=== PATIENT | female | born 1985 | race Caucasian/White ===

== ENCOUNTER → 2019-12-14 | Outpatient (CLI) | payer OTHER ==
[~2019-12-14] MED LIST: IBUP-1114 PO; IBUP80TA PO; LEVO125T4 PO; LEVO25TABR PO; MAPA500T17 PO; MAPA500T2 PO; PRENTAB55 PO; PRENTAB66 PO
--- NOTE | 2019-12-14 12:08 | REP ---
DIGITAL DIAGNOSTIC UNILATERAL RIGHT BREAST MAMMOGRAPHY WITH CAD, 3D TOMOGRAPHY, AND FOCUSED RIGHT BREAST SONOGRAPHY: HISTORY: Palpable lump in the right breast retroareolar region 5 months in duration. 3 months post cessation of . Lump persists. No comparison breast imaging. MAMMOGRAPHIC FINDINGS: An opaque marker is affixed to the skin at the site of the palpable lump in the right breast. Routine views are augmented by 3D tomography, and magnified focal spot compression mammography. Breast parenchyma is heterogeneously dense in a pattern which may inhibit the sensitivity of mammography. Volpara pattern C. There is no dominant density visible mammographically in the area of the palpable lump or elsewhere in the right breast. No microcalcifications or architectural distortion is seen. No worrisome skin changes appreciated. SONOGRAPHIC FINDINGS: The right breast is examined in the retroareolar 12-o'clock position where there is a palpable lump. There is an irregular hypoechoic lesion seen sonographically here measuring 1.9 x 1.0 x 1.4 cm. There is some eccentrically positioned internal Doppler flow within the lesion. Its long axis is perpendicular to the skin, and the lesion must be considered suspicious sonographically. IMPRESSION: BIRADS 4: BI-RADS/ACR category 4 mammogram. Suspicious Abnormality - biopsy should be considered. BI-RADS category 4 suspicious right breast imaging. Ultrasound-guided needle biopsy of the hypoechoic lesion in the right breast is recommended with marker clip placement and post clip placement mammography. This mammogram was interpreted with the aid of an FDA-approved computer-aided detection system. The patient states she had a clinical breast exam in November 2019. The patient letter being requested is M4, dense.
== END ==
LOC: M WHC 07:54
PROVIDERS: ATTEND Obstetrics & Gynecology
DX: N63.10 Unspecified lump in the right breast, unspecified quadrant (principal)

== ENCOUNTER → 2019-12-21 | Outpatient (CLI) | payer OTHER ==
[~2019-12-21] MED LIST changes: +ORTH1TAB8 PO
== END ==
LOC: M PLALAB 09:18
PROVIDERS: ATTEND Surgery
DX: Z13.79 Encounter for other screening for genetic and chromosomal anomalies (principal)

== ENCOUNTER → 2019-12-23 | Outpatient (CLI) | payer OTHER ==
[2019-12-23 14:09] VITALS: BP 130/72
--- NOTE | 2019-12-23 15:48 | REP ---
DIGITAL DIAGNOSTIC UNILATERAL RIGHT BREAST MAMMOGRAPHY: TWO VIEWS. WITH CAD: HISTORY: Marker clip placement views. The patient status post ultrasound-guided needle biopsy procedure. COMPARISON MAMMOGRAPHY: 12/14/2019 FINDINGS: Cranio-caudal and true mediolateral views demonstrate a needle biopsy marker clip in the anterior third of the right breast superiorly and medially. There is some post biopsy soft tissue fullness in the region. IMPRESSION: Marker clip placement views.
--- NOTE | 2019-12-23 16:15 | REP ---
FOCUSED RIGHT BREAST SONOGRAPHY: HISTORY: Right breast mass. Ultrasound guided needle biopsy. COMPARISON SONOGRAPHY: December 14, 2019 FINDINGS: Sonographic guidance is provided Dr. Lazar who performed ultrasound-guided needle biopsy procedure. a HydroMARK clip was placed.
--- NOTE | 2019-12-24 04:14 | REP ---
Clinical: Right axillary adenopathy. Technique: Real time noriega scale and color evaluation using linear high frequency transducer. Findings: Ultrasound examination of the right axillary region demonstrates multiple mildly prominent lymph nodes measuring up to 16 x 17 x 28 mm and 25 x 12 x 19 mm. No abnormal fluid collection or discrete mass lesion. Impression: Moderately prominent right axillary adenopathy.
--- NOTE | 2019-12-27 16:38 | ROOPDOC ---
[facility] Report Of Operation Report of Operation DATE OF PROCEDURE: 12/23/19 PREPROCEDURE DIAGNOSES: Suspicious right breast mass. POSTPROCEDURE DIAGNOSES: Suspicious right breast mass. PROCEDURE: Ultrasound-guided biopsy of right breast mass with clip placement. SURGEON: Ashutosh Crooks ADJUNCT PHLEBOTOMY INSTRUCTOR: ANESTHESIA: Local anesthetic was used. ESTIMATED BLOOD LOSS: Approximately 1 mL. COMPLICATIONS: None. REMARKS: Clip is seen on post biopsy mammogram in expected position. DESCRIPTION OF PROCEDURE: Lidocaine 1% LOT [id number] Expiration 09/2022 Sodium Bicarbonate 8.4% LOT [id number] Expiration 01/2021 Hydromark clip LOT [id number] Expiration 07/2022 SHAPE 3 Bx device: BARD [id number] x10 cm LOT [id number] Expiration 09/2022 Informed consent was obtained. The most common risk and possible complications including bleeding, hematoma, bruising, infection, injury to surrounding structures were explained to the patient and she expressed understanding. Patient was placed on the bed in the supine position. Appropriate time out was done stating patients name, date of , and the procedure to be performed. The right breast was prepped and draped in the usual fashion. The ultrasound was used to confirm the location of the lesion in the right breast at 12:00 at the areolar border. Plain Lidocaine 1% and 8.4% sodium bicarbonate 10:1 mix was used to anesthetize the skin, the biopsy site and tissues along the anticipated biopsy tract. Small skin incision was made with blade number 11. BARD Marquee 14G cannula with introducer ([id number]) was inserted through the incision and advanced under the ultrasound guidance to position immediately adjacent to the lesion. Next, the introducer was removed and BARD Marquee 14G biopsy device was places in the cannula. Pre-biopsy imaging, and post-biopsy imaging were captured. Five good core biopsies were taken at various levels of the lesion. Specimen was placed in formaldehyde, labeled with appropriate biopsy site and patients name, and sent to pathology for evaluation. Next, the biopsy device was withdrawn and a clip introducer was inserted into the biopsy site via the cannula. The Hydromark clip was deployed under direct vision. Post-clip placement image was captured. Manual pressure over the biopsy cavity and tract was held after the clip introducer was withdrawn. No bleeding was noted upon removal of the pressure. Post-biopsy mammogram of the right breast was obtained and showed clip in expected position. Postprocedural dressing was placed. Patient tolerated procedure well. Discharge instructions were discussed with the patient and she expressed understanding. ASHUTOSH CROOKS DO December 27, 2019 16:38
== END ==
LOC: M WHC 12:31
PROVIDERS: ATTEND Surgery
DX: C50.911 Malignant neoplasm of unspecified site of right female breast (principal); Z17.0 Estrogen receptor positive status [ER+]

== ENCOUNTER → 2019-12-29 | Outpatient (REF) | payer OTHER ==
[~2019-12-29] MED LIST changes: +B-650TAB2 PO; +D31000TA2 PO; +PANT40TA29 PO; +TAMO20TA8 PO
[2019-12-29 15:29] LABS: BLOOD UREA NITROGEN 11 MG/DL (7-18); CALCIUM LEVEL 9.4 MG/DL (8.5-10.1); CARBON DIOXIDE LEVEL 29 MEQ/L (21-32); CHLORIDE LEVEL 105 MEQ/L (98-107); CREATININE FOR GFR 0.86 MG/DL (0.55-1.30); GLOMERULAR FILTRATION RATE > 60.0 (>60); GLUCOSE, FASTING 89 MG/DL (70-100); POTASSIUM SERUM 4.3 MEQ/L (3.5-5.1); SODIUM LEVEL 138 MEQ/L (136-145)
== END ==
LOC: M PLALAB 12:30
PROVIDERS: ATTEND Surgery
DX: C50.911 Malignant neoplasm of unspecified site of right female breast (principal)

== ENCOUNTER → 2019-12-31 | Outpatient (CLI) | payer OTHER ==
[~2019-12-31] MED LIST changes: -B-650TAB2 PO; -D31000TA2 PO; -PANT40TA29 PO; +PROHANCE 279.3MG/ML 15ML VIAL As Ordered ONE; +PROHANCE 279.3MG/ML 5ML VIAL As Ordered ONE; -TAMO20TA8 PO
--- NOTE | 2019-12-31 15:06 | REP ---
BILATERAL BREAST MRI STUDY WITHOUT AND WITH IV GADOLINIUM: HISTORY: Breast carcinoma. Malignant neoplasm right breast. Comparison mammography and sonography December 14, 2019. Right axillary adenopathy seen on ultrasound right axilla December 23, 2019. The patient is post ultrasound-guided needle biopsy in December 23, 2019. TECHNIQUE: Three Saloni MRI imaging was performed with a dedicated breast coil. Axial, coronal, and sagittal T1- and T2-weighted scans were obtained with and without fat saturation in the usual fashion. The study includes dynamically acquired post gadolinium enhanced imaging subtraction imaging. Maximal intensity projection and multiplanar re-formation imaging is included as well. The study was interpreted with the aid of [id number], an FDA approved computer-aided detection (CAD) software program, on a dedicated breast MRI work station. The gadolinium enhancement dose is 16 mL of intravenous ProHance. FINDINGS: There is a large spiculated infiltrating irregular enhancing mass in the superior aspect of the right breast. This lesion is quite extensive with enhancing tissue extending in a ductal pattern to just beneath the right nipple anteriorly. It measures 5.2 cm in anteroposterior extent x 5.3 cm medial to lateral x 3.3 cm in greatest cranial to caudal dimension. On dynamically acquired sequential post contrast images, the lesion demonstrates heterogeneous contrast enhancement with large areas of progressive enhancement and scattered small areas of washout and plateau kinetics. The needle biopsy marker clip is seen in the midst of this along the medial aspect of the lesion. There is evidence of fairly bulky right axillary lymphadenopathy consistent with metastatic disease of the lymph nodes in the right axilla. These measure up to 2 x 2.5 cm in size. There are three or four enlarged lymph nodes visible. There is no visible internal mammary adenopathy. There is no visible skin thickening. There are moderate fibroglandular elements bilaterally corresponding with the mammographic density pattern. There is a mild pattern of background parenchymal enhancement in the left breast. No suspicious morphologic abnormality or suspicious area of enhancement washout is seen in the left breast to suggest malignancy on the left. There is no evidence of left axillary adenopathy. IMPRESSION: BIRADS category 6 known right breast malignancy with a large infiltrative lesion occupying much of the superior portion of the right breast, 5.3 cm in greatest diameter. There is evidence of right axillary lymphadenopathy with multiple suspicious nodes. No abnormality noted on the left. Electronically Signed by Christiano Howell MD 12/31/2019 04:19 P
== END ==
LOC: M RAD 12-30 11:34
PROVIDERS: ATTEND Surgery
DX: C50.911 Malignant neoplasm of unspecified site of right female breast (principal)
CPT/HCPCS: A9576; C8908

== ENCOUNTER → 2020-01-12 | Outpatient (CLI) | payer OTHER ==
[~2020-01-12] MED LIST changes: -PROHANCE 279.3MG/ML 15ML VIAL As Ordered ONE; -PROHANCE 279.3MG/ML 5ML VIAL As Ordered ONE
--- NOTE | 2020-01-12 17:49 | REP ---
PET/CT: HISTORY: Staging right breast carcinoma. COMPARISONS: Comparison breast MRI study, December 31, 2019. TECHNIQUE: 49 minutes following the intravenous injection of a 8.18 mCi dose of F-18 FDG, three-dimensional PET scintigraphy is acquired from the skull base to the proximal thighs. Triplanar noncontrast CT scanning is acquired through the same anatomic range for attenuation correction, and image registration with scan parameters optimized to minimize radiation exposure to the patient. PET scintigraphy and CT datasets were fused and displayed on a workstation with multiplanar and projection display capability. PET/CT FINDINGS: There is a 4.8 x 3.6 cm area of hypermetabolic uptake in the right superior breast corresponding to the known right breast malignancy. Maximum standard uptake value here is 11.19. No other abnormal breast uptake is seen. No abnormal internal mammary hypermetabolic uptake is seen. However, there is fairly bulky right axillary hypermetabolic adenopathy. Maximum standard uptake value in the axillary lymph nodes is 17.01. There are five or six hypermetabolic enlarged lymph nodes in the right axilla. No supraclavicular adenopathy is seen. No abnormal uptake is seen in the head and neck soft tissues. In the abdomen and pelvis, there is normal hepatic, splenic, gastrointestinal, and genitourinary FDG accumulation. No abnormal abdominal or pelvic uptake is seen. There is no abnormal skeletal hypermetabolic uptake. IMPRESSION: There is a large hypermetabolic mass in the right superior breast with hypermetabolic right axillary lymphadenopathy. No other abnormal uptake is seen. Electronically Signed by Christiano Howell MD 01/12/2020 06:03 P
== END ==
LOC: M PLARAD 12:24
PROVIDERS: ATTEND Surgery
DX: C50.911 Malignant neoplasm of unspecified site of right female breast (principal); R59.0 Localized enlarged lymph nodes
CPT/HCPCS: 78815; A9552

== ENCOUNTER → 2020-01-13 | Outpatient (CLI) | payer OTHER ==
--- NOTE | 2020-01-14 16:09 | ECHO ---
DATE OF PROCEDURE: 01/13/2020 REFERRING PHYSICIAN: Dr. Keila Newman INDICATION: Chemotherapy drugs that may affect the heart. HEIGHT: 71 inches. WEIGHT: 177 pounds. 2D MEASUREMENTS: Aortic root: 2.7 cm Left atrium: 3.3 cm Ventricular septum: 0.68 cm Posterior wall: 0.97 cm Left ventricle diastole: 4.4 cm Aortic annulus: 2.2 cm Inferior vena cava: 1.8 cm DOPPLER MEASUREMENTS: No aortic regurgitation. Aortic valve velocity: 128 cm/s LVOT velocity: 105 cm/s Trace mitral regurgitation within normal limits. Mitral E velocity: 77.1 cm/s Mitral A velocity: 48.4 cm/s Mitral deceleration time: 217 ms No tricuspid regurgitation. No pulmonic regurgitation. Pulmonary acceleration time: 161 ms MITRAL ANNULAR TISSUE DOPPLER: E prime septal: 14.3 cm/s E prime lateral: 10.5 cm/s DESCRIPTION: Rhythm was sinus. Image quality was good. This was a 2D, M-mode, color flow Doppler and pulse wave Doppler examination and included mitral annular tissue Doppler. CONCLUSIONS: 1. Normal echocardiogram Doppler. 2. Normal left ventricle internal dimensions and wall thickness. Normal regional left ventricular (LV) wall motion and wall thickening. Normal LV systolic function. Left ventricular ejection fraction (LVEF) 65% by visual estimate. Normal longitudinal peak strain imaging pattern. 3. No pericardial effusion.
== END ==
LOC: M CARPUL 14:19
PROVIDERS: ATTEND Internal Medicine Medical Oncology
DX: C50.911 Malignant neoplasm of unspecified site of right female breast (principal)

== ENCOUNTER → 2020-01-22 | Outpatient (CLI) | payer OTHER ==
[~2020-01-22] MED LIST changes: +PROHANCE 279.3MG/ML 15ML VIAL As Ordered ONE; +PROHANCE 279.3MG/ML 5ML VIAL As Ordered ONE
--- NOTE | 2020-01-22 14:30 | REPVR ---
PROCEDURE INFORMATION: Exam: MR Head Without and With Contrast Exam date and time: 01/22/2020 2:01 PM Age: 34 years old Clinical indication: Condition or disease; History of cancer (specify primary cancer site): ; Primary cancer: Breast; Additional info: Stage breast CA TECHNIQUE: Imaging protocol: MR of the head without and with intravenous contrast. Contrast material: PROHANCE; Contrast volume: 16 ml; Contrast route: IV; Other technique: COMPARISON the: PT - PET/CT Skull/mid thigh 01/12/2020 1:52:14 PM COMPARISON: No relevant prior studies available. FINDINGS: Brain: Mild cerebellar tonsillar ectopia, likely incidental. No acute infarct identified on the diffusion-weighted imaging. No evidence of brain parenchymal edema or intracranial mass effect. A few scattered areas of apparent sulcal hyperintensity on the FLAIR sequence, likely artifact. A few punctate foci of increased signal intensity in the deep and subcortical white matter most likely representing trace chronic small vessel ischemic change. No enhancing lesions identified on the postcontrast sequences. Ventricles: No ventriculomegaly. Bones/joints: Unremarkable. Sinuses: Lobulated opacity in the left frontal sinus which appears T1 isointense, may reflect inspissated secretions. The possibility of a retention cyst or mucocele is considered. Mastoid air cells: Normal as visualized. No mastoid effusion. Orbits: Unremarkable. Soft tissues: Unremarkable. IMPRESSION: No evidence of metastatic disease. Electronically signed by: Jamee Ha On 01/22/2020 14:30:33 PM
== END ==
LOC: M RAD 12:58
PROVIDERS: ATTEND Internal Medicine Medical Oncology
DX: C50.919 Malignant neoplasm of unspecified site of unspecified female breast (principal)
CPT/HCPCS: 70553; A9576

== ENCOUNTER → 2020-06-23 | Outpatient (CLI) | payer OTHER ==
[~2020-06-23] MED LIST changes: +B-650TAB2 PO; +D31000TA2 PO; -PROHANCE 279.3MG/ML 15ML VIAL As Ordered ONE; -PROHANCE 279.3MG/ML 5ML VIAL As Ordered ONE
--- NOTE | 2020-06-23 11:37 | RADONC.CN ---
Radiation Oncology Hx/Consult Radiation Oncology Consult Date of Service: Jun 23, 2020 Pt Identifier Phyllis Rojas is a 35 year old female with a history of right breast cancer [id number] ER/MN+ HER2- Grade 3 s/p neoadjuvant AC+T chemotherapy followed by BL nipple sparing mastectomies and right ALND on 05/31/20. She had immediate reconstruction. There was concern for atypical cells present at the margin of the nipple. The remainder of margins were negative. There was cancer detected in 2/14 nodes. 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 The latter raises concern for more severe RT side effects. She is seen today for consideration of PMRT. Diagnosis/Treatment History Oncologic History Presented with a right breast lump in early 201912/23/19 mammogram showing central right breast lesion biopsy showing ER/MN+ HER2- Grade 3 disease. 12/31/19 EOD MRI with 5.2 cm central right breast mass and axillary level I adenopathy [id number] 01/12/20 PET-CT negative for distant metastases 04/27/20 Completed AC+T chemotherapy ([facility]) 05/31/20 BL nipple sparing mastectomies ([facility]) final path [id number] focal IDC cells at right nipple margin, unclear if that margin is truly positive as it was submitted separately Per Dr. 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 Some post-op impaired ROM BL arms. No RUE swelling. Some mild tenderness. No skin concerns. Has some tightness in the chest from her tissue expanders. Fully active at home, taking care of her small children. Appetite and energy levels at pre-chemo baseline. Past Medical History: Hypothyroid Breast history OCP 20 years first @ 22 Menses @ 11 Pre-menopausal with plans to start trelstar and eventually undergo oophorectomy Past Surgical History: As above Family History: Maternal grandfather prostate cancer Social History: Non-smoker Non-drinker 3 school age children Allergies / Meds Allergies: Coded Allergies: No Known Allergies (Verified , 08/10/08) Home Meds Reported Medications Pyridoxine HCl (Vitamin B6) (Vitamin B-6) 50 Mg Tablet, 50 MG PO DAILY, TAB 06/23/20 Cholecalciferol (Vitamin D3) (Vitamin D3) 1,000 Unit Tablet, 1000 UNITS PO DAILY, TAB 06/23/20 Levothyroxine Sodium (LEVOTHYROXINE SODIUM) 125 Mcg Tab, 125 MCG PO DAILY, TAB 01/16/18 Discontinued Reported Medications Norgestimate-Ethinyl Estradiol (Ortho Tri-Cyclen 28 Tablet) 1 Each Tablet, 1 TAB PO DAILY for 28 Days, #28 TAB 12/23/19 Review of Systems Constitutional: Denies: Chills, Fever, Night Sweats Eyes: Denies: Pain, Vision change HEENT: Denies: Head Aches, Dysphagia, Sore Throat Skin: Denies: Rash, Lesions, Bruising Pulmonary: Denies: Dyspnea, Cough Cardiovascular: Denies: Chest Pain, Palpitations, Edema Breast: Reports: Breast Pain or Tenderness; Denies: New Breast Lumps / Masses, Nipple Retraction, Nipple Discharge, Breast Skin Changes Gastrointestinal: Denies: Nausea, Vomiting, Abdominal Pain, Diarrhea Genitourinary: Denies: Dysuria, Frequency, Incontinence Hematologic: Denies: Bruising, Petecchia, Enlarged Lymph Nodes Musculoskeletal: Denies: Neck pain, Back pain Neurological: Denies: Weakness, Numbness, Incoordination Psych: Reports: Mood Normal; Denies: Memory Issues, Thoughts of Self Harm Vital Signs Ht 71" Wt 183 BMI 25.6 T 96.9 P 74 RR 16 BP 117/77 O2 98% Pain 1 Fatigue 0 General Exam: Positive: Alert, Cooperative, No Acute Distress Eye Exam: Positive: PERRLA, EOMI ENT EXAM: Positive: Mucous membr. moist/pink, Pharynx Normal Neck Exam: Negative: Thyromegaly, Lymphadenopathy Chest Exam: Positive: Normal air movement; Negative: Rales, Rhonchi, Wheezing Heart Exam: Positive: Rate Normal, Regular Rhythm Breast Exam: Positive: Symmetric Bilaterally (BL tissue expanders in place, incisions well-healed. No nipple or periareolar lesions. Right axillary incision well healed. No RUE edema) Abdomen Exam: Positive: Soft; Negative: Tenderness, Mass Extremity Exam: Negative: Edema, Tenderness Skin Exam: Positive: Nl turgor and temperature; Negative: Rash Neuro Exam: Positive: Normal Gait, Normal Speech, Cranial Nerves 3-12 NL Psych Exam: Positive: Mental status NL, Mood NL, Memory Intact Diagnostic and Laboratory Diagnostic Review Radiologic images, relevant labs and pathology reports were personally reviewed and discussed with Ms. Rojas. Assessment and Plan Impression Ms. Rojas is a 35 year old female with a history of right breast cancer [id number] ER/MN+ HER2- Grade 3 s/p neoadjuvant AC+T chemotherapy followed by BL nipple sparing mastectomies and right ALND on 05/31/20. She had immediate reconstruction. There was concern for atypical cells present at the margin of the nipple. The remainder of margins were negative. There was cancer detected in 2/14 nodes. 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 The latter raises concern for more severe RT side effects. She is seen today for consideration of PMRT. Stage [id number] stage IIIA-->[id number] stage IA ER/MN+ HER2- Grade 3 right breast cancer Performance Status ECOG 0 Plan We had an extensive discussion with Ms. Rojas regarding the diagnosis at hand and available therapeutic options. She had a large disease burden initially with very favorable downstaging with neoadjuvant chemotherapy. She had nipple sparing mastectomy with concern for the margin at the nipple. Dr. Amaral is considering whether to resect the right nipple or not. This contingency would not affect my recommendation that she undergo PMRT including the right chest wall and comprehensive RNI. 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 Other reports have suggested increased clinical benefit of RT in this population (Rothman et al STEFANY 2001). More recent reports however, have shown that the risk of significant side effects in these patients is comparable with that of the general breast cancer population when using contemporary RT techn ique (Ottoniel et al JCO 2019). My plan for her is to use VMAT to deliver treatment, firstly to deliver comprehensive cristian RT including the IMN on the right, and also to ensure that we adhere to established dose constraints for lung, contralateral breast, and target homogeneity criteria given her young age, GLORIA carrier status, and plans for oncoplastic reconstruction. There is no role for bolus of the chest wall in her case, in spite of the unclear margin status at the nipple, I think that incidental skin dose in this region, which is typically in excess of 70% Rx with VMAT would be sufficient to clear any residual microscopic deposits. Dr. Amaral should ultimately decide how to manage the right nipple irrespective of what we do with RT based on her clinical acumen and judgement. All of these contingencies were discussed with the patient. We discussed the logistics of receiving radiation therapy in detail including the need for a 1-time planning session. I would like this to occur the week of 07/04/20 as she still has some tenderness of the chest and it is mildly uncomfortable for her to raise her hand above her head. We reviewed the early and late effects of RT including skin reaction, fatigue, fibrosis, implant failure, and second malignancy. After discussing the risks, benefits and alternatives to radiation therapy, Ms. Rojas was amenable to pursuing radiotherapy. All questions were answered to the patient's satisfaction. We instructed the patient that if there were any questions,concerns or changes in clinical status in the interim to contact us. Recommendations PMRT to the right CW and comprehensive RNI including IMN, axilla and supraclavicular fossa 50.4 Gy in 28 fractions to the CW, no bolus or boost Simulation week of 07/04/20 YOSSI LEE MD Jun 23, 2020 11:37
== END ==
LOC: M ONCR 08:53
PROVIDERS: ATTEND General Practice
DX: C50.919 Malignant neoplasm of unspecified site of unspecified female breast (principal)

== ENCOUNTER 2020-07-04 13:50 | Outpatient (RCR) | payer OTHER | END 2020-07-18 | LOC: M ONCR 13:50 | PROVIDERS: ATTEND General Practice | DX: C50.111 Malignant neoplasm of central portion of right female breast (principal) ==

== ENCOUNTER → 2020-08-18 | Outpatient (RCR) | payer OTHER ==
[~2020-08-18] MED LIST changes: +PANT40TA29 PO; +TAMO20TA8 PO
== END ==
LOC: M ONCR 07-19 13:01
PROVIDERS: ATTEND General Practice
DX: C50.111 Malignant neoplasm of central portion of right female breast (principal)

== ENCOUNTER 2020-08-31 08:36 | Outpatient (RCR) | payer OTHER ==
[2020-09-02] MEDS ORDERED: PANT40TA29 PO (10:36)
== END 2020-09-18 ==
LOC: M ONCR 08:36
PROVIDERS: ATTEND General Practice
DX: C50.111 Malignant neoplasm of central portion of right female breast (principal)

== ENCOUNTER → 2020-11-28 | Outpatient (REF) | payer OTHER | LOC: M SFHCADAM 16:09 | PROVIDERS: ATTEND Physician Assistant Medical | DX: E03.9 Hypothyroidism, unspecified (principal) ==

== ENCOUNTER → 2020-12-01 | Outpatient (REF) | payer OTHER ==
[2020-12-01 16:05] LABS: FREE T4 1.25 NG/DL (0.76-1.46); THYROID STIMULATING HORMONE 0.94 uIU/ML (0.358-3.740)
== END ==
LOC: M SFHCADAM 10:08
PROVIDERS: ATTEND Physician Assistant Medical
DX: E03.9 Hypothyroidism, unspecified (principal)

== ENCOUNTER → 2021-02-22 | Outpatient (CLI) | payer OTHER ==
--- NOTE | 2021-02-22 09:57 | RADONC ---
Radiation Oncology Hx/FUP Radiation Oncology Hx/FUP Date of Service: Feb 22, 2021 Pt Identifier Phyllis Rojas is a 36 year old female seen for a followup visit today at the department of radiation oncology for a history of right breast cancer [id number] ER/RI+ HER2- Grade 3 s/p neoadjuvant AC+T chemotherapy followed by BL nipple sparing mastectomies and right ALND on 05/31/20. She had immediate reconstruction. There was concern for atypical cells present at the margin of the nipple. The remainder of margins were negative. There was cancer detected in 2/14 nodes. 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 She completed PMRT 50.4 Gy in 28 fractions on 08/31/20. Diagnosis/Treatment History Oncologic History Presented with a right breast lump in early 201912/23/19 mammogram showing central right breast lesion biopsy showing ER/RI+ HER2- Grade 3 disease. 12/31/19 EOD MRI with 5.2 cm central right breast mass and axillary level I adenopathy [id number] 01/12/20 PET-CT negative for distant metastases 04/27/20 Completed AC+T chemotherapy ([facility]) 05/31/20 BL nipple sparing mastectomies ([facility]) final path [id number] focal IDC cells at right nipple margin, unclear if that margin is truly positive as it was submitted separately Per Dr. 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 Grade 1 skin reaction. October 2020 Hysterectomy/BSO. Started Varzenio + AI April 2021 planned to undergo final reconstruction implant exchange Survivorship Test Due Next Last result Notes TSH, T4* 6m post-tx, then q1y Winter 2020 History hypothyroidism Carotid US* q10 y post-tx 2030 Smoking cessation Assess annually if applicable N/A Screening CT chest q1y if eligible per USPSTF N/A Mammograms Min q1y, if breast conservation N/A CBC,CMP, Lipids q1y Winter 2020 DEXA q2y if on AI Per Dr. Naaryanan 2020 WNL Interval History Phyllis is doing well. She has no impaired ROM in the RUE, no swelling. Sometimes notes soreness with use, but resolves with lymphedema sleeve. She has persistent mild tenderness in the right axilla. No skin concerns. No complications post-hysterectomy last October. Tolerating Varzenio/AI. Appetite good energy level stable. Building a house currently. Current Therapy Varzenio/AI per [facility] 3 Stage [id number] stage IIIA-->[id number] stage IA ER/RI+ HER2- Grade 3 right breast cancer Social History: Non-smoker Non-drinker 3 school age children Allergies / Meds Allergies: Coded Allergies: No Known Allergies (Verified , 08/10/08) Home Meds Active Scripts Pantoprazole Sodium (Pantoprazole Sodium) 40 Mg Tablet.dr, 1 TAB PO DAILY for 90 Days, #90 TAB 2 Refills Prov:YOSSI LEE MD 09/02/20 Reported Medications Tamoxifen Citrate (Tamoxifen Citrate) 20 Mg Tablet, 20 MG PO DAILY 07/22/20 Pyridoxine HCl (Vitamin B6) (Vitamin B-6) 50 Mg Tablet, 50 MG PO DAILY, TAB 06/23/20 Cholecalciferol (Vitamin D3) (Vitamin D3) 1,000 Unit Tablet, 1000 UNITS PO DAILY, TAB 06/23/20 Levothyroxine Sodium (LEVOTHYROXINE SODIUM) 125 Mcg Tab, 125 MCG PO DAILY, TAB 01/16/18 Review of Systems Review of Systems Constitutional: Denies: Fatigue, Weight Loss Eyes: Denies: Pain HEENT: Denies: Head Aches Skin: Denies: Rash, Lesions Breast: Denies: New Breast Lumps / Masses, Nipple Retraction, Nipple Discharge, Breast Skin Changes, Breast Pain or Tenderness Pulmonary: Denies: Dyspnea Cardiovascular: Denies: Chest Pain Gastrointestinal: Denies: Abdominal Pain Hematologic: Denies: Bruising, Bleeding Excessively Musculoskeletal: Denies: Neck pain, Back pain Neurological: Denies: Weakness, Numbness Psych: Reports: Mood Normal Physical Examination Vital Signs Ht 71" Wt 173 BMI 24 T 97.6 P 65 RR 16 BP 104/69 O2 100% Pain 0 Fatigue 0 General Exam: Positive: Alert, Cooperative, No Acute Distress Eye Exam: Positive: PERRLA, EOMI ENT EXAM: Positive: Atraumatic Neck Exam: Positive: Supple; Negative: Lymphadenopathy Chest Exam: Positive: Clear to auscultation Heart Exam: Positive: Rate Normal Breast Exam: Positive: Symmetric Bilaterally; Negative: Lumps or Masses, Nipple Retraction, Skin Changes, Other Breast Findings (No pigmentation changes or telangiectasia on the right. No palpable lesions in the reconstructed breasts or axillae BL) Extremity Exam: Negative: Edema (No RUE edema, ROM intact) Skin Exam: Positive: Nl turgor and temperature Neuro Exam: Positive: Normal Gait, Normal Speech, Cranial Nerves 3-12 NL Psych Exam: Positive: Mental status NL Diagnostic and Laboratory Diagnostic Review Radiologic images, relevant labs and pathology reports were personally reviewed and discussed with Ms. Rojas. Assessment and Plan Impression Assessment Ms. Rojas is a 36 year old female with a history of right breast cancer [id number] ER/RI+ HER2- Grade 3 s/p neoadjuvant AC+T chemotherapy followed by BL nipple sparing mastectomies and right ALND on 05/31/20. She had immediate reconstruction. There was concern for atypical cells present at the margin of the nipple. The remainder of margins were negative. There was cancer detected in 2/14 nodes. 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 She completed PMRT 50.4 Gy in 28 fractions on 08/31/20. Phyllis is doing well. She has no late sequelae of RT. In fact despite her GLORIA heterozygosity, which some have suggested makes one more susceptible to RT induced side effects, she had minimal if any acute side effects from treatment. I will see her again in 6 months time, I will check her TSH at that time as she has a history of hypothyroidism and received RT to the supraclavicular fossa. If all is well in 6 months we can extend to annual follow up in effort to split follow up more effectively amongst her other providers. Performance Status ECOG 0 Plan Follow up in 6 months time Check TFTs at that time Ms. Rojas was encouraged to call with questions or concerns in the interim period. Billing Statement Total time of [21] minutes was spent preparing for the visit [1], obtaining HPI [4], examining the patient [3], reviewing diagnostic tests [1], discussing management options [4], coordinating care [1], and writing this note [7]. YOSSI LEE MD Feb 22, 2021 09:57
== END ==
LOC: M ONCR 09:24
PROVIDERS: ATTEND General Practice
DX: C50.111 Malignant neoplasm of central portion of right female breast (principal); C77.9 Secondary and unspecified malignant neoplasm of lymph node, unspecified; E03.9 Hypothyroidism, unspecified; Z79.890 Hormone replacement therapy; Z90.710 Acquired absence of both cervix and uterus; Z92.21 Personal history of antineoplastic chemotherapy; Z92.3 Personal history of irradiation

== ENCOUNTER → 2021-09-15 | Outpatient (CLI) | payer OTHER ==
[~2021-09-15] MED LIST changes: +VERZ150T PO
== END ==
LOC: M ONCR 07:54
PROVIDERS: ATTEND General Practice
DX: C50.111 Malignant neoplasm of central portion of right female breast (principal); Z92.21 Personal history of antineoplastic chemotherapy; Z79.899 Other long term (current) drug therapy

== ENCOUNTER → 2022-01-10 | Outpatient (CLI) | payer OTHER ==
[~2022-01-10] MED LIST changes: -D31000TA2 PO; +VITA100093 PO
== END ==
LOC: M PLALAB 07:43
PROVIDERS: ATTEND Physician Assistant Medical
DX: E03.9 Hypothyroidism, unspecified (principal)

== ENCOUNTER → 2022-02-26 | Outpatient (CLI) | payer OTHER ==
[2022-02-26 19:25] LABS: FREE T4 1.28 NG/DL (0.76-1.46); THYROID STIMULATING HORMONE 0.284 uIU/ML (0.358-3.740)
== END ==
LOC: M PLALAB 07:28
PROVIDERS: ATTEND Physician Assistant Medical
DX: E03.9 Hypothyroidism, unspecified (principal)

== ENCOUNTER → 2022-02-26 | Outpatient (CLI) | payer OTHER | LOC: M WHC 07:22 | PROVIDERS: ATTEND Nurse Practitioner Family | DX: C50.919 Malignant neoplasm of unspecified site of unspecified female breast (principal); K59.00 Constipation, unspecified; Z86.010 Personal history of colon polyps ==

== ENCOUNTER → 2022-03-27 | Outpatient (CLI) | payer OTHER | LOC: M ONCR 08:24 | PROVIDERS: ATTEND General Practice | DX: C50.911 Malignant neoplasm of unspecified site of right female breast (principal); Z92.3 Personal history of irradiation; Z92.21 Personal history of antineoplastic chemotherapy; Z79.899 Other long term (current) drug therapy ==

== ENCOUNTER → 2022-06-01 | Outpatient (REF) | payer OTHER | LOC: M SFHCDERM 17:20 | PROVIDERS: ATTEND Nurse Practitioner Family | DX: B35.1 Tinea unguium (principal) ==

== ENCOUNTER → 2022-09-28 | Outpatient (CLI) | payer OTHER | LOC: M ONCR 08:22 | PROVIDERS: ATTEND General Practice | DX: C50.111 Malignant neoplasm of central portion of right female breast (principal); N60.31 Fibrosclerosis of right breast; Z79.810 Long term (current) use of selective estrogen receptor modulators (SERMs); Z90.13 Acquired absence of bilateral breasts and nipples; Z92.21 Personal history of antineoplastic chemotherapy; Z92.3 Personal history of irradiation ==

== ENCOUNTER → 2022-12-06 | Outpatient (CLI) | payer OTHER ==
[2022-12-06 11:19] LABS: ALBUMIN 3.8 G/DL (3.2-5.2); ALKALINE PHOSPHATASE 48 U/L (46-116); ALT/SGPT 35 U/L (7.0-40); AST/SGOT 22 U/L (<34); BILIRUBIN,TOTAL 0.5 MG/DL (0.3-1.2); BLOOD UREA NITROGEN 18 MG/DL (9-23); CALCIUM LEVEL 9.8 MG/DL (8.5-10.1); CARBON DIOXIDE LEVEL 31 MMOL/L (20-31); CHLORIDE LEVEL 105 MMOL/L (98-107); CHOLESTEROL LEVEL 161 MG/DL (<200); CHOLESTEROL RISK RATIO 2.81 (<5); CREATININE FOR GFR 1.05 MG/DL (0.55-1.30); GLOMERULAR FILTRATION RATE > 60.0 (>60); GLUCOSE, FASTING 95 MG/DL (60-100); HDL CHOLESTEROL 57.2 MG/DL (>40); LDL CHOLESTEROL 94.8 MG/DL (<100); NON-HDL-C 103.8 MG/DL; POTASSIUM SERUM 4.3 MMOL/L (3.5-5.1); SODIUM LEVEL 139 MMOL/L (136-145); TRIGLYCERIDES LEVEL 45 MG/DL (<150)
[2022-12-06 11:20] LABS: FREE T4 1.41 NG/DL (0.89-1.76); THYROID STIMULATING HORMONE 0.105 uIU/ML (0.55-4.78)
[2022-12-06 11:33] LABS: BASO % 0.8 % (0.0-1.0); EOS # 0.1 10^3/uL (0.0-0.5); EOS % 2.9 % (0.0-3.0); HEMATOCRIT 40.5 % (36.0-47.0); HEMOGLOBIN 13.5 g/dl (12.0-15.5); LYMPH % 27.3 % (24.0-44.0); MEAN CORPUSCULAR HEMOGLOBIN 31.5 pg (27.0-33.0); MEAN CORPUSCULAR HGB CONC 33.3 g/dl (32.0-36.5); MEAN CORPUSCULAR VOLUME 94.4 fl (80.0-96.0); MONO # 0.3 10^3/uL (0.0-0.8); MONO % 8.3 % (2.0-8.0); NEUTROPHILS # 2.3 10^3/uL (1.5-8.5); NEUTROPHILS % 60.4 % (36.0-66.0); PLATELET COUNT, AUTOMATED 162 10^3/uL (150-450); RED BLOOD COUNT 4.29 10^6/uL (4.00-5.40); WHITE BLOOD COUNT 3.7 10^3/uL (4.0-10.0)
== END ==
LOC: M PLALAB 07:36
PROVIDERS: ATTEND Physician Assistant Medical
DX: E03.9 Hypothyroidism, unspecified (principal); Z13.220 Encounter for screening for lipoid disorders

== ENCOUNTER → 2023-02-11 | Outpatient (CLI) | payer OTHER ==
[2023-02-11 11:08] LABS: FREE T4 1.24 NG/DL (0.89-1.76)
[2023-02-11 11:09] LABS: THYROID STIMULATING HORMONE 0.712 uIU/ML (0.55-4.78)
== END ==
LOC: M PLALAB 07:42
PROVIDERS: ATTEND Physician Assistant Medical
DX: E03.9 Hypothyroidism, unspecified (principal)

== ENCOUNTER → 2023-10-01 | Outpatient (CLI) | payer OTHER | LOC: M ONCR 08:54 | PROVIDERS: ATTEND General Practice | DX: C50.111 Malignant neoplasm of central portion of right female breast (principal); Z71.2 Person consulting for explanation of examination or test findings; Z90.13 Acquired absence of bilateral breasts and nipples; Z92.21 Personal history of antineoplastic chemotherapy; Z92.3 Personal history of irradiation; Z79.810 Long term (current) use of selective estrogen receptor modulators (SERMs); Z90.710 Acquired absence of both cervix and uterus; Z90.722 Acquired absence of ovaries, bilateral; Z90.79 Acquired absence of other genital organ(s); Z98.890 Other specified postprocedural states ==

== ENCOUNTER → 2023-12-17 | Outpatient (REF) | payer OTHER ==
[2023-12-17 13:58] LABS: BASO % 0.4 % (0.0-1.0); EOS # 0.1 10^3/uL (0.0-0.5); EOS % 2.6 % (0.0-3.0); HEMATOCRIT 42.3 % (36.0-47.0); HEMOGLOBIN 14.2 g/dl (12.0-15.5); LYMPH # 1.3 10^3/uL (1.5-5.0); LYMPH % 23.6 % (24.0-44.0); MEAN CORPUSCULAR HEMOGLOBIN 30.7 pg (27.0-33.0); MEAN CORPUSCULAR HGB CONC 33.6 g/dl (32.0-36.5); MEAN CORPUSCULAR VOLUME 91.4 fl (80.0-96.0); MONO # 0.5 10^3/uL (0.0-0.8); MONO % 9.9 % (2.0-8.0); NEUTROPHILS # 3.4 10^3/uL (1.5-8.5); NEUTROPHILS % 63.3 % (36.0-66.0); PLATELET COUNT, AUTOMATED 161 10^3/uL (150-450); RED BLOOD COUNT 4.63 10^6/uL (4.00-5.40); WHITE BLOOD COUNT 5.4 10^3/uL (4.0-10.0)
[2023-12-17 14:27] LABS: ALKALINE PHOSPHATASE 49 U/L (46-116); ALT/SGPT 22 U/L (7.0-40); AST/SGOT 20 U/L (<34); BILIRUBIN,TOTAL 0.7 MG/DL (0.3-1.2); BLOOD UREA NITROGEN 17 MG/DL (9-23); CALCIUM LEVEL 9.7 MG/DL (8.5-10.1); CARBON DIOXIDE LEVEL 29 MMOL/L (20-31); CHLORIDE LEVEL 103 MMOL/L (98-107); CREATININE FOR GFR 0.84 MG/DL (0.55-1.30); GLOMERULAR FILTRATION RATE > 60.0 (>58); GLUCOSE, FASTING 98 MG/DL (60-100); POTASSIUM SERUM 4.2 MMOL/L (3.5-5.1); SODIUM LEVEL 139 MMOL/L (136-145); TOTAL PROTEIN 6.8 G/DL (5.7-8.2)
[2023-12-17 14:28] LABS: FREE T4 1.42 NG/DL (0.89-1.76); THYROID STIMULATING HORMONE 0.292 uIU/ML (0.55-4.78)
== END ==
LOC: M SFHCADAM 09:28
PROVIDERS: ATTEND Physician Assistant
DX: C50.919 Malignant neoplasm of unspecified site of unspecified female breast (principal); E03.9 Hypothyroidism, unspecified

== ENCOUNTER → 2024-03-09 | Outpatient (CLI) | payer OTHER ==
[2024-03-09 13:19] LABS: FREE T4 1.16 NG/DL (0.89-1.76); THYROID STIMULATING HORMONE 5.053 uIU/ML (0.55-4.78)
== END ==
LOC: M PLALAB 07:28
PROVIDERS: ATTEND Physician Assistant
DX: E03.9 Hypothyroidism, unspecified (principal)

== ENCOUNTER → 2024-10-01 | Outpatient (CLI) | payer OTHER | LOC: M ONCR 08:48 | PROVIDERS: ATTEND General Practice | DX: Z08 Encounter for follow-up examination after completed treatment for malignant neoplasm (principal); Z85.3 Personal history of malignant neoplasm of breast; Z92.21 Personal history of antineoplastic chemotherapy; Z90.13 Acquired absence of bilateral breasts and nipples; Z92.3 Personal history of irradiation; Z79.810 Long term (current) use of selective estrogen receptor modulators (SERMs) ==